=== PATIENT | female | born 1935 | race Caucasian/White ===

== ENCOUNTER 2016-08-01 07:53 | Inpatient (IN) | payer MEDICARE, OTHER ==
--- NOTE | ~2016-08-01 | DS ---
Discharge Summary [facility] [address] [place]. [address] NAME: MICHELLE CAMPBELL : 35 STATUS : DIS IN PAT#: [id number] AGE: 81 ADM/REG DATE : 08/01/16 MR#: [id number] REPORT SERV DATE: 08/04/16 DICTATED BY: APARNA PERDUE DATE: 08/03/16 REPORT STATUS : Draft TRANSCRIBED BY: MODL DATE: 08/03/16 ADMISSION DATE: 08/01/2016 DISCHARGE DATE: 08/03/2016 PRINCIPAL DIAGNOSIS: Severe hypernatremia due to hypovolemia due to failure to thrive syndrome with inadequate intake. SECONDARY DIAGNOSES: End stage dementia, dysphagia due to dementia with aspiration pneumonitis, also nosocomial urinary tract infection, acute kidney injury due to hypovolemia, chronic obstructive pulmonary disease, and rheumatoid arthritis. HISTORY OF PRESENT ILLNESS: Please see my dictation on 08/01/2016. HOSPITAL COURSE: The patient admitted with encephalopathy with unresponsiveness and fever, found to have a urinary tract infection and a mild right basilar pneumonia; however, more significantly she was found to be extremely volume contracted with acute kidney injury. Her free water deficit was calculated and she was volume resuscitated with a D5 half-normal saline infusion given at the appropriate calculated dose. She did have issues with access the first day, so there was some delay in getting her sodium improved; however, by the second day of hospitalization the sodium was coming down adequately. However, mental status was not improving, she was refusing any p.o. intake. I discussed with the family at length, they wished for her do not have a feeding tube, do not be resuscitated in any manner, in fact wish her to go home to her nursing facility in familiar surroundings where she would be expected to . They were given the option to do hospice care at the nursing facility in any event, there would remain a hospice level of care with comfort measures only. She had finished three days of antibiotics for urinary tract infection. No further antibiotic therapy is necessary for the aspiration pneumonitis. She completed D5 water infusion on 08/03/2016 and was released in fair condition with her expiration anticipated within the next week or two due to the poor p.o. intake and inevitable further decline in renal function and cognition. She was weaned off her various medicines as given her having stage 7 dementia. Dementia therapies no longer thought to be helpful. Namenda was stopped. Aricept was initiated upon a weaning protocol. She will continue Xalatan eye drops. She was taken off Cardizem, various electrolytes. Prednisone could continue, but methotrexate was discontinued. Tapazole could be resumed, but aspirin, multivitamin, and Claritin were discontinued. Depakote was discontinued due to her depressed mental status, although Zoloft could continue. No activity was expected rather than turning q.2 hours and pureed diet as tolerated would continued to be offered, but no further hospitalizations were anticipated or further advancement of therapies.. Greater than 30 minutes were spent with the patient on discharge planning on the discharge day. BETTE/KATIA Discharge Summary [address] [address] NAME: MICHELLE CAMPBELL : 35 STATUS : DIS IN PAT#: [id number] AGE: 81 ADM/REG DATE : 08/01/16 MR#: [id number] REPORT SERV DATE: 08/04/16 DICTATED BY: APARNA PERDUE DATE: 08/03/16 REPORT STATUS : Draft TRANSCRIBED BY: KATIA DATE: 08/03/16 Aparna Perdue M.D. / [id number] CC: Aparna Perdue M.D. [facility]
--- NOTE | ~2016-08-01 | HP ---
History And Physical [id number] [place]. [address] NAME: MICHELLE TRUJILLO : 35 STATUS : ADM IN [facility]#: [id number] AGE: 81 ADM/REG DATE : 08/01/16 MR#: [id number] REPORT SERV DATE: 08/01/16 DICTATED BY: APARNA PERDUE DATE: 08/01/16 REPORT STATUS : Draft TRANSCRIBED BY: MODL DATE: 08/01/16 DATE OF ADMISSION: 08/01/2016 REASON FOR ADMISSION: UTI, aspiration pneumonia, hypernatremia. HISTORY OF PRESENT ILLNESS: Ms. Trujillo is an 81-year-old female with dementia, COPD, lives at [facility] and sent from there this morning for fever, hypoxemia, diminished level of consciousness. The patient gives no history, history is per family, the patient lays in her bed, see unintelligibly. She does not feed herself or get out of bed in anyway. A pureed diet with assistance, but there has been some concern about aspiration with her sometimes forgetting how to swallow. Her weight, however, has not changed, and she does appear to still wish to have food. Overnight, she began having fevers. She was difficult to arouse and did not regard the examiners, which was unusual for her. Her temperature found to be 102 degrees. Breathing found be labored and she was saturating 89%. She is chronically incontinent, has a history dysphagia as mentioned. Further review of systems could not be assessed. The patient had not elicited any complaints recently. PAST MEDICAL HISTORY: As mentioned above. History of hyperthyroidism with apparent history of rheumatoid arthritis, although that is not on her records from [facility] [email or web address] MEDICATIONS: Prednisone, methotrexate, Namenda, Cardizem, aspirin, MiraLAX, Tapazole, multivitamin, Zoloft, Depakote, Claritin, Aricept. ALLERGIES: TO PENICILLIN. FAMILY HISTORY: Unremarkable, their children are well. SOCIAL HISTORY: The patient lives at [facility]. She is full code there, however, this had been assessed four years ago, and the family is willing to reconsider code status including whether or not artificial feeding would take place or a hospice care. PHYSICAL EXAMINATION: VITAL SIGNS: On presentation, blood pressure 153/85, pulse of 108, respirations 20, afebrile, sat 99% on 100% non-rebreather face mask. GENERAL: Obtunded, minimally responsive, only to grimace or withdrawal to painful stimuli. HEENT: She is not cooperate. Keeps her eyes shut tight, very dry mucous membranes are identified. NECK: Supple without lymphadenopathy. There is no jugular venous distention. CARDIAC: Tachycardic, irregular rate and rhythm. No murmurs, gallops, or rubs. LUNGS: Revealed some faint rales in the right base only, otherwise clear, but tachypneic. ABDOMEN: Nondistended, nontender, scaphoid. Bowel sounds are normal and active. EXTREMITIES: No cyanosis, clubbing, or edema; however, she had very poor pulses, very poor capillary refill, cachectic, wasted limbs. NEUROLOGIC: She had very poor movement in the bilateral lower extremities, but she withdrew well the upper extremities. She had scant jacinto urine in the Clinton catheter bag. SKIN: Warm and dry with very poor turgor with skin tenting noted. History And Physical [address] [address] NAME: MICHELLE TRUJILLO : 35 STATUS : ADM IN [facility]#: [id number] AGE: 81 ADM/REG DATE : 08/01/16 MR#: [id number] REPORT SERV DATE: 08/01/16 DICTATED BY: APARNA PERDUE DATE: 08/01/16 REPORT STATUS : Draft TRANSCRIBED BY: KATIA DATE: 08/01/16 PSYCHIATRIC: She is inappropriate. LABORATORY EVALUATION: pH 7.45, pCO2 of 35, pO2 of 177 on 100% non-rebreather face mask. Sodium 158, potassium 3.6, chloride 121, bicarb 27, BUN 32, creatinine 0.9, glucose 119, total bilirubin of 1.4. White count 5.5, H and H 13 and 46, platelets 185. Urinalysis, 56 white blood cells. EKG: Normal sinus rhythm with premature atrial contractions. There were some runs of atrial fibrillation on the heart monitor. Chest x-ray showed right lower lobe infiltrate. CT of the brain showed severe atrophy, particularly in the frontal lobes. ASSESSMENT AND PLAN: 1. Urinary tract infection with aspiration pneumonia with probable sepsis. Lactic acid, CPK will be screened per sepsis guidelines. Zosyn and vancomycin will be given. She received Rocephin here in the emergency department. We will check cultures. Follow up chest x-ray following hydration. Check a swallow evaluation tomorrow given the concerns for aspiration. Family does seem to wish for PEG tube feeding, we will anticipate that early this week. 2. Dehydration with hypernatremia, free water deficit 2.5 L. The patient will receive a current IV fluid bag as a bolus and then receive half normal saline at 100 mL an hour to replace half of the sodium over the course of the next twenty four hours. She is hemodynamically stable at present. Urinary output, however, is poor. 3. Chronic obstructive pulmonary disease, does not appear to be exacerbated, question whether this is a prednisone indication. In any event in the setting of physiologic stress, hydrocortisone is indicated. 4. Atrial fibrillation with rapid ventricular response. I agree with followup her free T4. If she has received albuterol here, that may contribute to her rapid ventricular response. Cardizem drip will be indicated. We do not wish for anticoagulation in this patient who was considering hospice and has zero functional status already. 5. Dementia, Alzheimer's type, end-stage, worthwhile to check an ammonia levels while she is on the Depakote, that medicine will be withheld given her absence of history of nocturnal complications, urinary tract infection, infectious issues as well as her hypernatremia certainly exacerbate her mental status. We will try to reassess her baseline following hydration, antibiotic therapy, but once again hospice care seems to be the best long-term bet. 6. Rheumatoid arthritis. No real deformities are identified. Methotrexate is compromising her immune system and will be discontinued indefinitely. We also recommend following up her liver function tests noting that medication. RSM/MODL Aparna Perdue M.D. / [id number] CC: History And Physical [address] [place]. [address] NAME: MICHELLE TRUJILLO : 35 STATUS : ADM IN [facility]#: [id number] AGE: 81 ADM/REG DATE : 08/01/16 MR#: [id number] REPORT SERV DATE: 08/01/16 DICTATED BY: APARNA PERDUE DATE: 08/01/16 REPORT STATUS : Draft TRANSCRIBED BY: PATIENCEL DATE: 08/01/16 Chava Ramirez M.D.
[2016-08-01 06:16] LABS: ALLENS TEST Pos; BE (BASE EXCESS) 0.4 MEQ/L (0 +/- 2.5); CARBOXYHEMOGLOBIN 1.2 % (0-3); DEVICE NRB; HCO3 (ACTUAL BICARBONATE) 23.8 MEQ/L (23-27); HEMOBLOGIN CONTENT 13.9 G/DL (12-16); INSTRUMENT SERIAL # 8087; METHEMOGLOBIN 0.2 % (0-3); O2 CONTENT 19.5 VOL% (18-24); OPERATOR ID 17589; PCO2 (CO2 TENSION) 35 MMHG (35-45); PO2 (O2 TENSION) 177 MMHG (79-93); SAMPLE Arterial; pH 7.45 (7.37-7.43)
[2016-08-01 06:58] LABS: BASOPHILS 0.2 %; BASOPHILS ABSOLUTE 0.01 10/3/uL (0.0-0.16); EOSINOPHILS 0 %; HEMOGLOBIN 13.8 g/dL (12.0-16.0); IMMATURE GRANULOCYTES 0.9 %; LYMPHOCYTES 11.9 %; LYMPHOCYTES ABSOLUTE 0.65 10/3/uL (0.67-4.30); MEAN CORPUS HGB CONC 30.2 g/dL (32.0-36.0); MEAN CORPUSCULAR HEMOGLOB 32.2 pg (26.0-34.0); MEAN PLATELET VOLUME 9.9 fL (9.2-13.0); MONOCYTES ABSOLUTE 0.11 10/3/uL (0.21-1.20); NEUTROPHILS ABSOLUTE 4.63 10/3/uL (2.02-8.40); RBC DISTRIBUTION WIDTH 16.7 % (12.0-16.0); RED CELL COUNT 4.28 10/6/uL (4.0-5.6)
[2016-08-01 07:03] LABS: PROTIME (NOT ORD) 13.4 SEC (12.0-14.5)
[2016-08-01 07:04] LABS: ER CBC TAT 0 Hrs 15 Mins; HEMATOCRIT 45.7 % (36.0-48.0); IMMATURE GRANULOCYTES ABSOLUTE 0.05 10/3/uL (0.0-0.11); MANUAL DIFF NO %; MEAN CORPUSCULAR VOLUME 106.8 fL (80-100); PLATELET COUNT 185 10/3/uL (150-400); WHITE BLOOD CELLS 5.5 10/3/uL (4.5-10.5)
[2016-08-01 07:13] LABS: CALCIUM, SERUM 8.5 MG/DL (8.5-10.4); CHLORIDE, SERUM 121 MMOL/L (96-112); CO2 (CARBON DIOXIDE) 27 MMOL/L (24-34); CREATININE 0.92 MG/DL (0.55-1.02); GFR AFRICAN AMERICAN 68 ML/MIN (>=60); GFR NON AFRICAN AMERICAN 58 ML/MIN (>=60); POTASSIUM, SERUM 3.6 MMOL/L (3.5-5.3); SGOT(AST) 28 U/L (5-40); SGPT(ALT) 17 U/L (5-65); TOTAL PROTEIN 7.6 G/DL (6.0-8.5)
[2016-08-01 07:15] LABS: A/G RATIO 0.6 (0.7-1.9); ALBUMIN 2.7 G/DL (3.5-5.0); ALKALINE PHOSPHATASE 116 U/L (45-117); ASCORBIC ACID (UR NOT ORDER) NEG (NEG); BILIRUBIN, URINE NEGATIVE (NEG); BUN (BLOOD UREA NITROGEN) 32 MG/DL (6-23); ER URINALYSIS TAT 0 Hrs 26 Mins; GLOBULIN 4.9 G/DL (2.5-4.1); GLUCOSE, SERUM 119 MG/DL (60-99); INFLUENZA A SCREEN NEGATIVE (NEGATIVE); INFLUENZA B SCREEN NEGATIVE (NEGATIVE); KETONE, URINE NEGATIVE (NEG); LEUKOCYTE ESTERASE(NOT OR MOD (NEG); NITRITE (URINE) POS (NEG); SODIUM, SERUM 158 MMOL/L (135-148); TOTAL BILIRUBIN 1.4 MG/DL (0-1.2); WBC (NOT ORDERED) (RFLEX) 56 (0-5)
[2016-08-01 07:38] LABS: BAND NEUTROPHILS 11 %; ER DIFF TAT 0 Hrs 49 Mins; IMMATURE GRANS ABSOLUTE (CALC) 0.06 10/3/uL (0.0-0.11); LYMPHOCYTES 9 %; METAMYELOCYTES 1 %; MONOCYTES 1 %; MONOCYTES ABSOLUTE (CALC) 0.06 10/3/uL (0.21-1.20); PLATELET ESTIMATE ADQ (ADEQUATE); SEGMENTED NEUTROPHIL (0) 78 %; TOTAL NUCLEATED CELLS 100
[2016-08-01] MEDS ORDERED: P10 PO (09:32)
[2016-08-01] MEDS ORDERED: PERI-COLACE1 TAB PO (09:32)
[2016-08-01] MEDS ORDERED: CARDCD120 PO (09:33)
[2016-08-01] MEDS ORDERED: MTX2.5 PO (09:33)
[2016-08-01] MEDS ORDERED: NAMENXR28 PO (09:33)
[2016-08-01] MEDS ORDERED: ASAB PO (09:34)
[2016-08-01] MEDS ORDERED: 8 HOUR650 MG PO (09:34)
[2016-08-01] MEDS ORDERED: MIRALAX POWDER1 PKT PO (09:34)
[2016-08-01] MEDS ORDERED: METHIMAZOLE10 MG PO (09:35)
[2016-08-01] MEDS ORDERED: CENTRUM PO (09:35)
[2016-08-01] MEDS ORDERED: ZOL50 PO (09:35)
[2016-08-01] MEDS ORDERED: CLARIT10 PO (09:37)
[2016-08-01] MEDS ORDERED: DEPASPRINK PO (09:37)
[2016-08-01] MEDS ORDERED: ARICEPT10 PO (09:37)
[2016-08-01] MEDS ORDERED: XALAT OPH (09:37)
[2016-08-01 17:28] LABS: LACTATE 2.1 MMOL/L (0.3-2.4)
[2016-08-01 17:35] LABS: FREE T4 1.06 NG/DL (0.76-1.46); ULTRASENSITIVE TSH 1.32 MCIU/ML (0.358-3.740)
[2016-08-01 17:36] LABS: TROPONIN I 0.1 NG/ML (<0.05)
[2016-08-01 18:11] LABS: PROCALCITONIN 0.62 ng/mL (<0.5)
[2016-08-02 07:12] LABS: HEMATOCRIT 38.8 % (36.0-48.0); HEMOGLOBIN 11.4 g/dL (12.0-16.0); MANUAL DIFF YES %; MEAN CORPUS HGB CONC 29.4 g/dL (32.0-36.0); MEAN CORPUSCULAR VOLUME 105.4 fL (80-100); PLATELET COUNT 131 10/3/uL (150-400); RED CELL COUNT 3.68 10/6/uL (4.0-5.6); WHITE BLOOD CELLS 11.4 10/3/uL (4.5-10.5)
[2016-08-02 07:29] LABS: A/G RATIO 0.5 (0.7-1.9); ALBUMIN 2.1 G/DL (3.5-5.0); ALKALINE PHOSPHATASE 86 U/L (45-117); BUN (BLOOD UREA NITROGEN) 29 MG/DL (6-23); CALCIUM, SERUM 7.3 MG/DL (8.5-10.4); CHLORIDE, SERUM 124 MMOL/L (96-112); CO2 (CARBON DIOXIDE) 25 MMOL/L (24-34); CREATININE 0.84 MG/DL (0.55-1.02); GFR AFRICAN AMERICAN 76 ML/MIN (>=60); GFR NON AFRICAN AMERICAN 65 ML/MIN (>=60); GLOBULIN 4.1 G/DL (2.5-4.1); GLUCOSE, SERUM 112 MG/DL (60-99); PHOSPHORUS, SERUM 2.4 MG/DL (2.5-4.5); POTASSIUM, SERUM 3.8 MMOL/L (3.5-5.3); SGOT(AST) 23 U/L (5-40); SGPT(ALT) 9 U/L (5-65); SODIUM, SERUM 159 MMOL/L (135-148); TOTAL BILIRUBIN 0.6 MG/DL (0-1.2); TOTAL PROTEIN 6.2 G/DL (6.0-8.5)
[2016-08-02 07:34] LABS: ANISOCYTOSIS 1+ (5-10/OIF) (0-5/OIF); BAND NEUTROPHILS 13 %; LYMPHOCYTES 14 %; MACROCYTES 1+ (5-10/OIF) (0-5/OIF); MONOCYTES 1 %; MONOCYTES ABSOLUTE (CALC) 0.11 10/3/uL (0.21-1.20); NEUTROPHILS ABSOLUTE (CALC) 9.69 10/3/uL (2.02-8.40); PLATELET ESTIMATE SLT DEC (ADEQUATE); SEGMENTED NEUTROPHIL (0) 72 %; TOTAL NUCLEATED CELLS 100
[2016-08-02 21:47] LABS: CALCIUM, SERUM 7.5 MG/DL (8.5-10.4); CHLORIDE, SERUM 123 MMOL/L (96-112); CO2 (CARBON DIOXIDE) 27 MMOL/L (24-34); CREATININE 0.67 MG/DL (0.55-1.02); GFR AFRICAN AMERICAN 96 ML/MIN (>=60); GFR NON AFRICAN AMERICAN 82 ML/MIN (>=60); GLUCOSE, SERUM 108 MG/DL (60-99); POTASSIUM, SERUM 3.8 MMOL/L (3.5-5.3)
[2016-08-02 21:48] LABS: BUN (BLOOD UREA NITROGEN) 25 MG/DL (6-23); SODIUM, SERUM 156 MMOL/L (135-148)
[2016-08-03 06:25] LABS: CALCIUM, SERUM 7.6 MG/DL (8.5-10.4); CHLORIDE, SERUM 121 MMOL/L (96-112); CO2 (CARBON DIOXIDE) 23 MMOL/L (24-34); GFR AFRICAN AMERICAN 94 ML/MIN (>=60); GFR NON AFRICAN AMERICAN 81 ML/MIN (>=60); GLUCOSE, SERUM 113 MG/DL (60-99); SODIUM, SERUM 155 MMOL/L (135-148)
[2016-08-03 06:30] LABS: BUN (BLOOD UREA NITROGEN) 20 MG/DL (6-23)
== END 2016-08-03 13:31 | disposition hospice, inpatient (51) | DRG 682 ==
LOC: ER 07:53 → 6NO 09:54
PROVIDERS: Emergency Medicine; Internal Medicine
PROC: 05H633Z Insertion of Infusion Device into Left Subclavian Vein, Percutaneous Approach (ICD-10-PCS; principal; 2016-08-01)
DX: N17.9 Acute kidney failure, unspecified (principal); J69.0 Pneumonitis due to inhalation of food and vomit; E87.0 Hyperosmolality and hypernatremia; I48.91 Unspecified atrial fibrillation; J44.9 Chronic obstructive pulmonary disease, unspecified; E86.0 Dehydration; R13.10 Dysphagia, unspecified; N39.0 Urinary tract infection, site not specified; G30.9 Alzheimer's disease, unspecified; R63.0 Anorexia; F02.80 Dementia in other diseases classified elsewhere, unspecified severity, without behavioral disturbance, psychotic disturbance, mood disturbance, and anxiety; Z68.1 Body mass index [BMI] 19.9 or less, adult; I25.10 Atherosclerotic heart disease of native coronary artery without angina pectoris; R62.7 Adult failure to thrive; M06.9 Rheumatoid arthritis, unspecified; E05.90 Thyrotoxicosis, unspecified without thyrotoxic crisis or storm; R32 Unspecified urinary incontinence; Y95 Nosocomial condition; Z79.52 Long term (current) use of systemic steroids; Z79.82 Long term (current) use of aspirin; Z88.0 Allergy status to penicillin; Z66 Do not resuscitate
CPT/HCPCS: 36569-52; 36600; 70450; 71010; 80048; 80053; 81001; 82140; 82550; 82805; 83605; 83690; 83735; 84100; 84145; 84439; 84443; 84484; 85025; 85610; 87040; 87077; 87086; 87150; 87186; 87804; 93005; 96374; 96375; 99285; A9270-GY